=== PATIENT | female | born 2000 | race Caucasian/White ===

== ENCOUNTER 2022-02-26 00:18 | Emergency (ER) | payer MEDICAID ==
[~2022-02-26] VITALS: Ht 152.4 cm; Wt 62.5 kg
[2022-02-26 00:40] VITALS: BP 119/84
== END 2022-02-26 03:52 | disposition home or self-care (01) ==
LOC: ER 00:18
DX: N76.2 Acute vulvitis (principal)
CPT/HCPCS: 10060; 99282

== ENCOUNTER 2024-12-15 12:10 | Emergency (ER) | payer MEDICAID, OTHER ==
[~2024-12-15] VITALS: Ht 152.4 cm; Wt 61.7 kg
[2024-12-15 12:12] VITALS: O2SAT 100
[2024-12-15] MEDS: LIDOCAINE HCL/PF 1% 10 MG/ML 5ML VIAL INFIL ONE (15:13)
[2024-12-15] MEDS: BACITRACIN ZINC OINT UDPKT TOP ONE (15:14)
[2024-12-15 15:18] VITALS: BP 115/73; PULSE 71; RESP 14; TEMP 36.9; O2SAT 100
== END 2024-12-15 15:25 | disposition home or self-care (01) ==
LOC: ER 12:10
DX: N76.4 Abscess of vulva (principal)
CPT/HCPCS: 56405; 99284; J2003; Z7610 ×3; 99282